=== PATIENT | male | born 1960 | race Caucasian/White ===

== ENCOUNTER 2020-07-15 21:40 | Emergency (ER) | payer BC ==
[2020-07-15] MEDS ORDERED: Tetracaine HCl/PF 0.5% 4 ML Bottle EYELF ONE (22:05)
--- NOTE | 2020-07-15 22:22 | EDM.PDOC ---
ED HPI GENERAL MEDICAL PROBLEM - General Chief Complaint: Eye Problems Stated Complaint: SOMETHING IN L EYE Time Seen by Provider: 07/15/20 22:05 Source of Information: Reports: Patient, RN History Limitations: Reports: No Limitations - History of Present Illness INITIAL COMMENTS - FREE TEXT/NARRATIVE: 59 yo male presents with L eye pain for about 4 hrs. Has increased pain with blinking. Vision is OK. Was working around saw dust at onset. Onset: Today, Sudden Onset Date: 07/15/20 Duration: Hour(s): (4), Constant Location: Reports: Face (L eye) Quality: Reports: Sharp Severity: Moderate Improves with: Reports: Rest Worsens with: Reports: Other (blinking) Context: Reports: Trauma Associated Symptoms: Reports: No Other Symptoms Treatments HEALTHCARE MANAGEMENT CONSULTANT: Reports: Other (see below) (flushed eye out) Left Eye Pain Score (Numeric/FACES): 6 - Related Data Allergies Allergy/AdvReac Type Severity Reaction Status Date / Time Penicillins Allergy Rash Verified 07/15/20 22:01 Home Meds: Home Meds Allopurinol [Zyloprim] 100 mg PO DAILY 07/15/20 [History] metFORMIN [Glucophage] 500 mg PO BIDMEALS 07/15/20 [History] Past Medical History Cardiovascular History: Reports: High Cholesterol, Hypertension Musculoskeletal History: Reports: Gout Endocrine/Metabolic History: Reports: Diabetes, Type II - Infectious Disease History Infectious Disease History: Reports: Chicken Pox, Measles, Mumps Social & Family History - Tobacco Use Smoking Status *Q: Never Smoker - Caffeine Use Caffeine Use: Reports: Coffee - Recreational Drug Use Recreational Drug Use: No ED ROS GENERAL - Review of Systems Review Of Systems: See Below Constitutional: Reports: No Symptoms HEENT: Reports: Eye Pain (left). Denies: Eye Discharge, Glasses, Vision Change Skin: Reports: No Symptoms Neurological: Reports: No Symptoms ED EXAM GENERAL W FULL EYE - Physical Exam Exam: See Below Exam Limited By: No Limitations General Appearance: Alert, WD/WN, No Apparent Distress Eye Exam: Left Eye: Conjunctival Injection, EOMI, PERRL Eyelids: Bilateral: Normal Appearance Conjunctiva & Sclera: Right: Normal Appearance, Left: Injected Cornea Exam: Left: Corneal Abrasion (upper 10% if L cornea affected), Examined with Flourescein Extraocular Movements: Bilateral: Intact Pupillary Size: Bilateral: 2 mm ED EYE w/ Add Procedure - Eye Procedure Alcaine Drops Administered: Yes (tetracaine) Eye FB Removal: Other (cotton swab removal from under the upper lid, looked like saw dust) Course - Vital Signs Last Recorded V/S: Last Vital Signs Temp 35.3 C L 07/15/20 22:12 Pulse 54 L 07/15/20 22:12 Resp 16 07/15/20 22:12 BP 140/79 07/15/20 22:12 Pulse Ox 96 07/15/20 22:12 - Orders/Labs/Meds Meds: Medications Discontinued Medications Generic Name Dose Route Start Last Admin Trade Name Freq PRN Reason Stop Dose Admin Tetracaine HCl 0.5 ml 07/15/20 22:05 07/15/20 22:10 Tetracaine 0.5% Steri-Unit Natalya EYELF 07/15/20 22:06 0.5 ml ASDIRECTED ONE Administration Departure - Departure Time of Disposition: 22:25 Disposition: Home, Self-Care 01 Condition: Fair Clinical Impression: Corneal abrasion Qualifiers: Encounter type: initial encounter Laterality: left Qualified Code(s): S05.02XA - Injury of conjunctiva and corneal abrasion without foreign body, left eye, initial encounter - Discharge Information *PRESCRIPTION DRUG MONITORING PROGRAM REVIEWED*: No *COPY OF PRESCRIPTION DRUG MONITORING REPORT IN PATIENT KHURRAM: No Instructions: Corneal Abrasion, [id number] Referrals: PCP,None [Primary Care Provider] - Forms: ED Department Discharge Additional Instructions: Avoid rubbing the affected eye. Avoid bright lights. Use [place] for pain relief as needed along with ibuprofen. Use antibiotic eye drops for 2 days. Recheck if not better in 1.5 days. Sepsis Event Note (ED) - Evaluation Sepsis Screening Result: No Definite Risk - Focused Exam Vital Signs: Vital Signs Temp Pulse Resp BP Pulse Ox 07/15/20 22:12 35.3 C L 54 L 16 140/79 96 07/15/20 22:00 35.3 C L 54 L 16 140/79 96
== END 2020-07-15 22:27 | disposition home or self-care (01) ==
LOC: JP.ED 21:40
DX: S05.02XA Injury of conjunctiva and corneal abrasion without foreign body, left eye, initial encounter (principal); I10 Essential (primary) hypertension; E11.9 Type 2 diabetes mellitus without complications; Z88.0 Allergy status to penicillin; X58.XXXA Exposure to other specified factors, initial encounter
CPT/HCPCS: 99283